=== PATIENT | female | born 2000 | race African-American/Black ===

== ENCOUNTER 2023-04-14 06:57 | Outpatient (CLI) | payer MEDICAID | END 2023-04-14 06:58 | disposition home or self-care (01) | LOC: BICULT 06:57 | PROVIDERS: ATTEND Family Medicine | DX: Z34.02 Encounter for supervision of normal first pregnancy, second trimester (principal); Z3A.21 21 weeks gestation of pregnancy | CPT/HCPCS: 76805 ==